=== PATIENT | male | born 1985 | race Caucasian/White ===

== ENCOUNTER 2017-07-25 14:55 | Emergency (ER) | payer SELFPAY ==
[~2017-07-25] VITALS: Wt 99.8 kg
[~2017-07-25 14:55] MED LIST: DAYPRO600 M1 PO; MEDROL DOSEPAK4 MG PO; ROBAXIN750 MG PO
[2017-07-25] MEDS ORDERED: SUBOXONE 8 MG-1 EACH SL (15:09)
[2017-07-25] MEDS ORDERED: NAPROSYN500 MG PO (15:38)
[2017-07-25] MEDS ORDERED: AMOXICILLIN500 M2 PO (15:38)
== END 2017-07-25 15:41 | disposition home or self-care (01) ==
LOC: ED 14:55
DX: K04.7 Periapical abscess without sinus (principal); F17.200 Nicotine dependence, unspecified, uncomplicated; Z79.899 Other long term (current) drug therapy